=== PATIENT | female | born 1965 | race Caucasian/White ===

== ENCOUNTER 2017-07-02 11:43 | Emergency (ER) | payer SELFPAY ==
[2017-07-02 11:45] VITALS: BP 152/86; PULSE 129; RESP 16; TEMP 99.6; O2SAT 98
[2017-07-02] MEDS ORDERED: AMPH1TAB29 PO (11:59)
[2017-07-02] MEDS ORDERED: AZITHROMYCIN 250 MG TAB PO ONE (12:30)
[2017-07-02] MEDS ORDERED: ONDANSETRON HCL 4 MG/2 ML VIAL IV PUSH ONE (12:30)
[2017-07-02] MEDS ORDERED: cefTRIAXone 250 MG VIAL IM ONE (12:30)
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
[2017-07-02] MEDS ORDERED: ONDANSETRON HCL 4 MG/2 ML VIAL IM ONE (12:45)
[2017-07-02 13:08] LABS: BACTERIA, URINE MANY /hpf; BILIRUBIN, URINE NEG (NEG); BLOOD, URINE TRACE (NEG); GLUCOSE,URINE NEG (NEG); KETONE, URINE 10 mg/dL (NEG); MUCUS URINE FEW /lpf (OCC); NITRITE,URINE POS (NEG); PH, URINE 5.5 (5.0-8.5); SQUAMOUS EPITHELIAL CELL URINE 24 /hpf (0-5); URINE LEUKOCYTE ESTERASE LARGE (NEG); WHITE BLOOD CELL CLUMPS MOD
[2017-07-02 13:10] LABS: URINE COLOR ORANGE (YELLW/STRAW)
[2017-07-02] MEDS ORDERED: MACR100C2 PO (13:54)
[2017-07-02] MEDS ORDERED: DIFL150T PO (13:54)
[2017-07-02 14:00] VITALS: BP 120/77; TEMP 97.8
== END 2017-07-02 14:05 | disposition home or self-care (01) ==
LOC: NEPD 11:43
DX: N39.0 Urinary tract infection, site not specified (principal); B96.20 Unspecified Escherichia coli [E. coli] as the cause of diseases classified elsewhere; Z79.899 Other long term (current) drug therapy
CPT/HCPCS: 80307; 81001; 87077; 87086; 87186; 87491; 87591; 96372; 96374; 99284; J0696; J2405